=== PATIENT | male | born 1940 | race Caucasian/White ===

== ENCOUNTER 2023-12-25 12:17 | Emergency (ER) | payer OTHER ==
[2023-12-25] MEDS: Bacitracin Oint 1 GM U/D Packet TOP ONE (14:52)
[2023-12-25] MEDS ORDERED: Bacitracin Oint 28.35 GM Tube TOP SCH (21:00)
== END 2023-12-25 15:27 | disposition home or self-care (01) ==
LOC: JP.ED 12:17
DX: S41.112A Laceration without foreign body of left upper arm, initial encounter (principal); W20.8XXA Other cause of strike by thrown, projected or falling object, initial encounter; Y92.019 Unspecified place in single-family (private) house as the place of occurrence of the external cause
CPT/HCPCS: 99282; 99283